=== PATIENT | male | born 1945 | race Caucasian/White ===

== ENCOUNTER 2021-08-03 05:45 | Day surgery (SDC) | payer MEDICARE, OTHER ==
[~2021-08-03] VITALS: Ht 167.6 cm; Wt 89.0 kg
--- NOTE | ~2021-08-03 | OR ---
[facility] [address] [place], [place] [address] Draft DATE OF OPERATION: 08/03/2021 SURGEON: Jose Angel Washington MD PREOPERATIVE DIAGNOSES: 1. 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 2. Recent placement of radioactive seeds for continued treatment of prostate cancer (brachytherapy). POSTOPERATIVE DIAGNOSES: 1. 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 2. Recent placement of radioactive seeds for continued treatment of prostate cancer (brachytherapy). 3. Diagnostic cystoscopy reveals no evidence of residual radioactive seeds present within the patient's bladder or urethra. NAMES OF PROCEDURES: Diagnostic cystoscopy. ANESTHESIA: General. ESTIMATED BLOOD LOSS: None. COMPLICATIONS: None. SPECIMENS: None. DRAINS: None. INDICATIONS FOR PROCEDURE: Mr. Hutton is a very pleasant 75-year-old gentleman, who has been diagnosed with stage T3b prostate cancer. He has recently undergone external beam radiation therapy and now has just undergone brachytherapy under the auspices of Dr. Julio Cesar Aiken. Now that he has completed brachytherapy, Dr. Aiken was asked that I perform a diagnostic cystoscopy to evaluate for the presence of any residual seeds within his bladder or within his PATIENT NAME: DELVIS HUTTON OPERATIVE REPORT DATE OF : 47 REPORT #: [id number] PHYSICIAN: JOSE ANGEL WASHINGTON MD PCP: AMEYA[employer] REPORT IS CONFIDENTIAL AND NOT TO BE RELEASED WITHOUT AUTHORIZATION [facility] [address] [place], [place] [address] Draft urethra. OPERATIVE FINDINGS: On cystoscopy, there was no evidence of any suspicious masses, lesions, or stones. Bilateral ureteral orifices are in their normal anatomic location. Of note, there was no evidence of any radioactive seeds present within his bladder or within his entire urethra. DESCRIPTION OF PROCEDURE: The patient has already been placed in the dorsal lithotomy position and his genitalia prepped and draped in a standard sterile fashion. A 17-Vincentian flexible cystoscope was inserted through the patient's urethra into his bladder under direct visualization. Panendoscopic views of the bladder and urethra were then obtained. Please see above findings. I then slowly withdrew the scope to take an an extra close look at the patient's prostatic urethra. Again, there was no evidence of any residual brachytherapy seeds anywhere in the patient's bladder or urethra. The procedure was then terminated. The patient tolerated this portion of the procedure well and he will now head to the postanesthesia care unit in stable condition. MD JARROD Cortez/JOON /[id number] Copies: ~ PATIENT NAME: DELVIS HUTTON OPERATIVE REPORT DATE OF : 47 REPORT #: [id number] PHYSICIAN: JOSE ANGEL WASHINGTON MD PCP: GABRIELLA HOU REPORT IS CONFIDENTIAL AND NOT TO BE RELEASED WITHOUT AUTHORIZATION
--- NOTE | ~2021-08-03 | OR ---
[facility] [address], [place] [address] Draft DATE OF OPERATION: 08/03/2021 SURGEON: Liza Aiken MD, PH.D. PREOPERATIVE DIAGNOSIS: Prostate adenocarcinoma. POSTOPERATIVE DIAGNOSIS: Prostate adenocarcinoma. PROCEDURE: Rectal ultrasound-guided implantation of radioactive iodine-125 seeds into the prostate gland. ANESTHESIA: General. ESTIMATED BLOOD LOSS: Minimal. COMPLICATIONS: None. ANTIBIOTICS: IV levofloxacin. INDICATIONS FOR PROCEDURE: Delvis Hutton is a 75-year-old gentleman, who was recently diagnosed with stage T3b N0 M0, [place] grade 4+5=9, PSA 24 prostate adenocarcinoma. His prostate cancer was classified as high risk. He received 45 platt of external beam radiation to the pelvic lymph nodes, seminal vesicles, and prostate gland ending on July 05, 2021. He has elected to undergo a radioactive seed implant boost. Prescription dose: 110 platt with iodine-125 seeds with 0.258 millicurie activity. DESCRIPTION OF PROCEDURE: Following induction of adequate anesthesia, the patient was placed in the treatment planning dorsal lithotomy position. The perineum was prepped with Betadine and a Bal catheter was inserted into the bladder without difficulty. The scrotum was elevated onto the abdominal wall and secured with Ioban. The fixation support system was fixed to the PATIENT NAME: DELVIS HUTTON OPERATIVE REPORT DATE OF : 47 REPORT #: [id number] PHYSICIAN: LIZA AIKEN PCP: GABRIELLA HOU REPORT IS CONFIDENTIAL AND NOT TO BE RELEASED WITHOUT AUTHORIZATION [facility] [address] [place], [place] [address] Draft table and the ultrasound probe was affixed to the system. Transrectal ultrasound examination of the prostate was performed with a 6 MHz probe, taking sagittal and transverse views to localize the prostate gland and to make sure the images conformed to the preoperative plan. Once the proper angulation and position were obtained, the apparatus was fixed in position. The template was then attached to the apparatus. Then, individual preloaded needles were inserted, one needle at a time through the template and perineal skin, and into the prostate gland according to the preoperative plan. Each individual needle was identified on the ultrasound images and inserted into position as close as possible to the pretreatment plan on axial images. Two anchor needles were placed initially to help stabilize the prostate gland. Then, starting anteriorly, one row of needles were placed first. The proper depth of each needle was then confirmed on sagittal images and also by measuring the distance from the template to the hub of each needle with a ruler. Then, needles were slowly withdrawn with the stylet in place, so that the stranded seeds were placed in the prostate gland in the proper position. Then, subsequent rows of needles were placed, one at a time with placement of all the seeds from each row before proceeding to the next row. The more posterior row of seeds were placed at a deeper depth to ensure coverage of the seminal vesicles according to the preplan. AP pelvic x-rays were taken periodically to confirm the proper position of the radioactive seeds. The treatment plan called for 88 seeds to be implanted, but an additional four seeds were added to the medial seminal vesicles to increase dose in this region. Therefore, a total of 104 seeds were implanted using 26 needles for a total activity of 23.736 millicuries. There was minimal bony interference encountered during the procedure. Following the insertion of the seeds, an AP pelvic x-ray was taken, which revealed seeds to be generally in the correct position within the pelvis. The patient then had a cystoscopy performed by Dr. Hall (see separate operative report) with no seeds seen in the urethra or bladder. The patient tolerated the procedure well and was taken to the recovery room in good condition. The patient will have a urinary voiding trial prior to discharge. The patient will follow up with me in one month and we will also obtain a CT scan of the pelvis for post-implant asymmetry. He was told to phone our office if he has any difficulties or problems. CONDITION: Stable. PATIENT NAME: DELVIS HUTTON OPERATIVE REPORT DATE OF : 47 REPORT #: [id number] PHYSICIAN: LIZA AIKEN PCP: GABRIELLA HOU REPORT IS CONFIDENTIAL AND NOT TO BE RELEASED WITHOUT AUTHORIZATION [address] [address] Draft Liza Aiken MD, PH.D. ANANDA/JOON /[id number] cc: ROHIT Rivera Copies: PIERRE PARRISH ~ PATIENT NAME: ANNIDELVIS OPERATIVE REPORT DATE OF : 47 REPORT #: [id number] PHYSICIAN: LIZA AIKEN PCP: GABRIELLA HOU REPORT IS CONFIDENTIAL AND NOT TO BE RELEASED WITHOUT AUTHORIZATION
[~2021-08-03 05:45] MED LIST: BYSTOLIC10 MG PO; CRESTOR10 MG PO; FENOFIBRATE160 MG PO; FLOMAX0.4 MG PO; GABAPENTIN100 MG PO; NEXIUM40 MG PO; PREDNISONE20 MG PO
[2021-08-03] MEDS ORDERED: TYLENOL325 M1 PO (06:13)
== END 2021-08-03 12:05 | disposition home or self-care (01) ==
LOC: DS 05:45
PROVIDERS: ATTEND Radiology Radiation Oncology
PROC: 0VH43YZ Insertion of Other Device into Prostate and Seminal Vesicles, Percutaneous Approach (ICD-10-PCS; principal; 2021-08-03 06:45)
DX: C61 Malignant neoplasm of prostate (principal); Z92.3 Personal history of irradiation
CPT/HCPCS: 76000; 76873; 77470; C2638; J1100; J1170; J1885; J1956; J2001; J2405; J2704; J3010; J7121